=== PATIENT | male | born 1990 | race Caucasian/White ===

== ENCOUNTER 2017-06-23 16:10 | Emergency (ER) | payer OTHER ==
[~2017-06-23] VITALS: Ht 175.3 cm; Wt 67.3 kg
[2017-06-23 16:25] VITALS: BP 159/91
[2017-06-23] MEDS ORDERED: IBUP-1114 PO (16:32)
[2017-06-23] MEDS ORDERED: INDO50CA PO (18:55)
[2017-06-23] MEDS ORDERED: KEFL500C17 PO (18:55)
[2017-06-23] MEDS ORDERED: CEPHALEXIN 500 MG CAP PO ONE (19:00)
[2017-06-23] MEDS ORDERED: INDOMETHACIN 25 MG CAP PO ONE (19:00)
== END 2017-06-23 19:13 | disposition home or self-care (01) ==
LOC: M ED 16:10
DX: M70.42 Prepatellar bursitis, left knee (principal); Z88.2 Allergy status to sulfonamides